=== PATIENT | male | born 1960 | race Caucasian/White ===

== ENCOUNTER 2018-06-16 20:54 | Emergency (ER) | payer OTHER ==
[~2018-06-16] VITALS: Ht 185.4 cm; Wt 138.3 kg
--- NOTE | 2018-06-16 22:58 | Diagnostic Imaging Report ---
EXAM: Left Lower Extremity Duplex Ultrasound INDICATION: DVT. COMPARISON: None TECHNIQUE: Henson scale, color Doppler and spectral waveform analysis of the left lower extremity deep venous system was performed. FINDINGS: Common Femoral: Fully compressible with normal spontaneous waveforms. Proximal Greater Saphenous: Fully compressible. Femoral: Fully compressible with normal spontaneous waveforms. Normal response to augmentation. Proximal Deep Femoral: Normal spontaneous waveforms. Popliteal and posterior tibial vein: Fully compressible with normal spontaneous waveforms. There is a fluid collection in the popliteal region measuring 3.7 x 1 x 1.7 cm compatible with a Grier's cyst IMPRESSION: 1. No evidence of deep venous thrombosis along the left lower extremity. 2. Grier's cyst cyst is present. Signed by: Dr. Frankie Wade M.D. on 06/16/2018 10:54 PM
== END 2018-06-16 23:40 | disposition home or self-care (01) ==
LOC: FSED 20:54
DX: R60.0 Localized edema (principal); I10 Essential (primary) hypertension; E11.9 Type 2 diabetes mellitus without complications; E78.5 Hyperlipidemia, unspecified; M71.22 Synovial cyst of popliteal space [Baker], left knee; E66.9 Obesity, unspecified; Z68.41 Body mass index [BMI] 40.0-44.9, adult
CPT/HCPCS: 93971; 99283